=== PATIENT | female | born 1940 | race Caucasian/White ===

== ENCOUNTER 2016-08-06 08:49 | Inpatient (IN) | payer MEDICARE, OTHER ==
[~2016-08-06 08:49] MED LIST: ALEVE220 M1 PO; ALEVE220 M4 PO; ASPIR-LOW81 M1 PO; ASPIRIN325 MG PO; CALCIUM 600 +1 EA22 PO; CRANBERRY; FISH OIL 1,2001 CAP PO; MULTIVITAMIN1 TAB PO; NORCO 5/325 TAB1 TAB PO; OMEPRAZOLE20 M2 PO; STOOL SOFTENER100 M2 PO; SYSTANE 0.3-0.1 EACH OP; TYLENOL325 M2 PO; ULTRAM50 M1 PO; ZOCOR40 M1 PO; ZYRTEC10 M1 PO
[2016-08-07 05:21] LABS: BASO % 0.1 % (0-2); HCT-HEMATOCRIT 34.3 % (34.0-49.0); HGB-HEMOGLOBIN 11.4 gm/dl (12.0-15.5); IMMATURE GRANULOCYTES ABSOLUTE 0.02 tho/cmm (0-0.03); IMMATURE GRANULOCYTES PERCENT 0.2 % (0-0.3); LYMPH % 9.1 % (20-45); MCH (MEAN CORPUSCULAR HGB) 30.6 pg (28.0-32.0); MCHC MEAN CORPUSCULAR HGB CONC 33.2 % (32.0-36.0); MEAN PLATELET VOLUME 10.3 cmc (9.4-12.4); MONO % 9.3 % (0-12); NEUTROPHILS % 81.3 % (40-80); PLATELET COUNT 178 tho/cmm (150-450); RED BLOOD COUNT 3.73 mil/cmm (4.00-5.20); RED CELL DISTRIBUTION WIDTH 13.9 % (12.4-16.4); WHITE BLOOD COUNT 11.1 tho/cmm (4.0-10.0)
[2016-08-07] MEDS ORDERED: ASPIRIN81 M1 PO (11:28)
[2016-08-07] MEDS ORDERED: MOBIC7.5 M2 PO (11:31)
[2016-08-07] MEDS ORDERED: OXYCODONE HCL5 M1 PO (11:32)
== END 2016-08-07 14:35 | DRG 470 ==
LOC: SHSB 08:49 → ORE 11:27 → PACU 12:24 → 5EA 13:35
PROVIDERS: Physician Assistant Surgical; ADMIT Orthopaedic Surgery Foot and Ankle Surgery
PROC: 0SRB02A Replacement of Left Hip Joint with Metal on Polyethylene Synthetic Substitute, Uncemented, Open Approach (ICD-10-PCS; principal; 2016-08-06)
DX: M16.12 Unilateral primary osteoarthritis, left hip (principal); D62 Acute posthemorrhagic anemia; M76.9 Unspecified enthesopathy, lower limb, excluding foot; Z79.82 Long term (current) use of aspirin; M47.9 Spondylosis, unspecified; I73.00 Raynaud's syndrome without gangrene; Z87.891 Personal history of nicotine dependence; E78.5 Hyperlipidemia, unspecified; D72.829 Elevated white blood cell count, unspecified
CPT/HCPCS: C1776; J0171; J0690; J1885; J2270; J2795